=== PATIENT | male | born 1950 | race Caucasian/White ===

== ENCOUNTER 2023-01-09 13:40 | Emergency (ER) | payer MEDICARE, OTHER ==
[~2023-01-09] VITALS: Ht 180.3 cm; Wt 108.7 kg
[2023-01-09] MEDS ORDERED: methocarbamoL 750 MG TAB PO ONE (13:55)
[2023-01-09] MEDS ORDERED: KETOROLAC 60MG 2ML VIAL IM ONE (13:55)
[2023-01-09] MEDS ORDERED: predniSONE 20 MG TAB PO ONE (16:25)
[2023-01-09] MEDS ORDERED: METH-1165 PO (16:26)
[2023-01-09] MEDS ORDERED: PRED10TA2 PO (16:26)
[2023-01-09 16:52] VITALS: BP 159/81
== END 2023-01-09 16:54 | disposition home or self-care (01) ==
LOC: M ED 13:40
DX: M54.17 Radiculopathy, lumbosacral region (principal); K21.9 Gastro-esophageal reflux disease without esophagitis
CPT/HCPCS: 72148; 96372; 99284; J7512

== ENCOUNTER → 2023-01-15 | Outpatient (CLI) | payer MEDICARE, OTHER ==
[~2023-01-15] MED LIST: METH-1165 PO; PRED10TA2 PO
== END ==
LOC: M SOG 08:30
PROVIDERS: ATTEND Orthopaedic Surgery
DX: M47.817 Spondylosis without myelopathy or radiculopathy, lumbosacral region (principal)

== ENCOUNTER 2024-06-13 14:01 | Observation (INO) | payer MEDICAID, MEDICARE ==
[~2024-06-13] VITALS: Ht 180.3 cm; Wt 112.7 kg
[2024-06-13] MEDS: NS 1,000 ML IV SCH (17:49)
[2024-06-13] MEDS: dexAMETHasone 20MG/5ML VIAL IV ONE (17:50)
[2024-06-13] MEDS: CYCLOBENZAPRINE 10MG TABLET PO ONE (17:50)
[2024-06-13 18:11] LABS: BASO % 0.2 % (0.0-1.0); EOS # 0.2 10^3/uL (0.0-0.5); EOS % 1.4 % (0.0-3.0); HEMATOCRIT 44.1 % (42.0-52.0); HEMOGLOBIN 14.4 g/dl (13.5-17.5); LYMPH # 2.3 10^3/uL (1.5-5.0); LYMPH % 19.7 % (24.0-44.0); MEAN CORPUSCULAR HEMOGLOBIN 29.9 pg (27.0-33.0); MEAN CORPUSCULAR HGB CONC 32.7 g/dl (32.0-36.5); MEAN CORPUSCULAR VOLUME 91.7 fl (80.0-96.0); MONO # 0.7 10^3/uL (0.0-0.8); MONO % 6.1 % (2.0-8.0); NEUTROPHILS # 8.2 10^3/uL (1.5-8.5); PLATELET COUNT, AUTOMATED 226 10^3/uL (150-450); RED BLOOD COUNT 4.81 10^6/uL (4.30-6.10); WHITE BLOOD COUNT 11.5 10^3/uL (4.0-10.0)
[2024-06-13 18:31] LABS: C REACTIVE PROTEIN QUANTITATIV < 0.40 MG/DL (<1.0)
[2024-06-13 18:32] LABS: ALBUMIN 4.1 G/DL (3.2-5.2); ALKALINE PHOSPHATASE 95 U/L (46-116); ALT/SGPT 35 U/L (7.0-40); AST/SGOT 17 U/L (<34); BILIRUBIN,TOTAL 0.5 MG/DL (0.3-1.2); BLOOD UREA NITROGEN 13 MG/DL (9-23); CARBON DIOXIDE LEVEL 27 MMOL/L (20-31); CHLORIDE LEVEL 107 MMOL/L (98-107); CREATININE FOR GFR 0.91 MG/DL (0.70-1.30); GLOMERULAR FILTRATION RATE > 60.0 (>42); GLUCOSE, FASTING 90 MG/DL (74-106); POTASSIUM SERUM 4.4 MMOL/L (3.5-5.1); SODIUM LEVEL 139 MMOL/L (136-145); TOTAL PROTEIN 6.5 G/DL (5.7-8.2)
[2024-06-13] MEDS ORDERED: KETO10TAB PO (19:34)
[2024-06-13] MEDS ORDERED: CYCL-707 PO ×2 (19:34→21:18)
[2024-06-13] MEDS: PERCOCET 5MG/325MG TAB PO ONE (19:56)
[2024-06-13] MEDS: KETOROLAC 30 MG/ML 1ML VIAL IV ONE (19:56)
[2024-06-13] MEDS: MORPHINE 4 MG/ML 1ML VIAL IV ONE (20:25)
[2024-06-13] MEDS ORDERED: ACET-683 PO (21:18)
[2024-06-13] MEDS ORDERED: ONETAB32 PO (21:18)
[2024-06-13] MEDS ORDERED: OMEP-173 PO (21:18)
[2024-06-13] MEDS ORDERED: NAPR-885 PO (21:18)
[2024-06-13] MEDS ORDERED: [UNRECOGNIZED DRUG - CODE] PO (21:18)
[2024-06-13] MEDS ORDERED: HOME MED LIST COMPLETE! XX SCH (21:20)
[2024-06-13] MEDS ORDERED: methocarbamoL 500 MG TAB PO PRN (22:35)
[2024-06-13] MEDS ORDERED: MOM 30ML SUSPENSION UDC PO PRN (22:35)
[2024-06-13] MEDS ORDERED: ACETAMINOPHEN 500 MG TAB PO PRN (22:35)
[2024-06-14 00:45] VITALS: BP 157/99; TEMP 98.6; O2SAT 96
[2024-06-14] MEDS: diphenhydrAMINE 25MG CAP PO ONE (01:59)
[2024-06-14] MEDS ORDERED: PERCOCET 5MG/325MG TAB PO PRN (02:15)
[2024-06-14] MEDS ORDERED: ACETAMINOPHEN TAB 650MG DOSE (2X325MG) PO PRN (04:35)
[2024-06-14 07:30] LABS: HEMATOCRIT 43.5 % (42.0-52.0); HEMOGLOBIN 13.9 g/dl (13.5-17.5); MEAN CORPUSCULAR HEMOGLOBIN 29.2 pg (27.0-33.0); MEAN CORPUSCULAR VOLUME 91.4 fl (80.0-96.0); PLATELET COUNT, AUTOMATED 224 10^3/uL (150-450); RED BLOOD COUNT 4.76 10^6/uL (4.30-6.10); WHITE BLOOD COUNT 12.1 10^3/uL (4.0-10.0)
[2024-06-14 07:55] LABS: BLOOD UREA NITROGEN 14 MG/DL (9-23); CALCIUM LEVEL 8.8 MG/DL (8.3-10.6); CARBON DIOXIDE LEVEL 24 MMOL/L (20-31); CHLORIDE LEVEL 107 MMOL/L (98-107); CREATININE FOR GFR 0.83 MG/DL (0.70-1.30); GLOMERULAR FILTRATION RATE > 60.0 (>42); GLUCOSE, FASTING 148 MG/DL (74-106); POTASSIUM SERUM 4.7 MMOL/L (3.5-5.1); SODIUM LEVEL 138 MMOL/L (136-145)
[2024-06-14] MEDS: HEPARIN SOD (PORCINE) 5000UNITS/ML 1ML VIAL/SYRINGE SC SCH (08:06)
[2024-06-14] MEDS: ACETAMINOPHEN TAB 650MG DOSE (2X325MG) PO SCH (08:57)
[2024-06-14] MEDS: methocarbamoL 500 MG TAB PO PRN (08:57)
[2024-06-14] MEDS: MOM 30ML SUSPENSION UDC PO SCH (08:58)
[2024-06-14] MEDS: SENOKOT S TAB PO SCH (08:58)
[2024-06-14] MEDS: OMEPRAZOLE 20MG CAP PO SCH (08:58)
[2024-06-14] MEDS: KETOROLAC 30 MG/ML 1ML VIAL IV SCH (08:58)
[2024-06-14] MEDS: PERCOCET 5MG/325MG TAB PO PRN (11:23)
[2024-06-14 12:00] VITALS: BP 120/81; TEMP 98.6; O2SAT 94
[2024-06-14 20:03] VITALS: BP_SYST 124; BP_SYST 158; BP_DIAS 74; BP_DIAS 88; TEMP 99; O2SAT 95
[2024-06-14] MEDS ORDERED: OMEPRAZOLE 20MG CAP PO SCH ×2 (21:00)
[2024-06-14] MEDS ORDERED: CYCLOBENZAPRINE 10MG TABLET PO PRN (22:10)
[2024-06-15] MEDS: diphenhydrAMINE 25MG CAP PO PRN (00:40)
[2024-06-15 04:38] VITALS: BP 126/74; TEMP 98.2; O2SAT 96
[2024-06-15 07:25] LABS: BASO % 0.1 % (0.0-1.0); EOS % 0.3 % (0.0-3.0); HEMATOCRIT 41.4 % (42.0-52.0); HEMOGLOBIN 13.2 g/dl (13.5-17.5); LYMPH # 2.5 10^3/uL (1.5-5.0); LYMPH % 15.8 % (24.0-44.0); MEAN CORPUSCULAR HEMOGLOBIN 29.1 pg (27.0-33.0); MEAN CORPUSCULAR HGB CONC 31.9 g/dl (32.0-36.5); MEAN CORPUSCULAR VOLUME 91.4 fl (80.0-96.0); MONO % 6.1 % (2.0-8.0); NEUTROPHILS # 12.1 10^3/uL (1.5-8.5); NEUTROPHILS % 77.1 % (36.0-66.0); PLATELET COUNT, AUTOMATED 219 10^3/uL (150-450); RED BLOOD COUNT 4.53 10^6/uL (4.30-6.10); WHITE BLOOD COUNT 15.7 10^3/uL (4.0-10.0)
[2024-06-15 07:49] LABS: BLOOD UREA NITROGEN 17 MG/DL (9-23); CALCIUM LEVEL 8.9 MG/DL (8.3-10.6); CARBON DIOXIDE LEVEL 30 MMOL/L (20-31); CHLORIDE LEVEL 109 MMOL/L (98-107); CREATININE FOR GFR 1.02 MG/DL (0.70-1.30); GLOMERULAR FILTRATION RATE > 60.0 (>42); GLUCOSE, FASTING 96 MG/DL (74-106); POTASSIUM SERUM 4.4 MMOL/L (3.5-5.1); SODIUM LEVEL 143 MMOL/L (136-145)
[2024-06-15 12:01] VITALS: BP 127/81; TEMP 98.6; O2SAT 94
[2024-06-15] MEDS ORDERED: SENN-52 PO (12:45)
[2024-06-15] MEDS ORDERED: ACET-683 PO (12:45)
[2024-06-15] MEDS ORDERED: KETO10TAB PO (12:45)
[2024-06-15] MEDS ORDERED: PERCOCET PO (12:45)
[2024-06-15] MEDS ORDERED: METH-1164 PO (12:45)
[2024-06-15] MEDS ORDERED: MEDR4PAK PO (12:45)
== END 2024-06-15 14:10 | disposition home or self-care (01) ==
LOC: EDBD 14:01 → M ED 14:01 → M ED INP 14:02 → INTOOBSV 14:02 → M MS5PR 06-14 00:40
PROVIDERS: ADMIT Internal Medicine; ATTEND Internal Medicine Nephrology
DX: M51.36 Other intervertebral disc degeneration, lumbar region (principal); M25.78 Osteophyte, vertebrae; M51.26 Other intervertebral disc displacement, lumbar region; M48.16 Ankylosing hyperostosis [Forestier], lumbar region; G56.81 Other specified mononeuropathies of right upper limb; M47.812 Spondylosis without myelopathy or radiculopathy, cervical region; M54.30 Sciatica, unspecified side; G89.29 Other chronic pain; M19.90 Unspecified osteoarthritis, unspecified site; M70.51 Other bursitis of knee, right knee; K21.9 Gastro-esophageal reflux disease without esophagitis; R97.20 Elevated prostate specific antigen [PSA]; K43.9 Ventral hernia without obstruction or gangrene; E66.9 Obesity, unspecified; Z68.34 Body mass index [BMI] 34.0-34.9, adult; Z79.899 Other long term (current) drug therapy; Z80.51 Family history of malignant neoplasm of kidney
CPT/HCPCS: 36415; 72131; 80048; 80053; 83735; 85025; 85027; 86140; 96361; 96374; 96375; 96376; 97116; 97161; 97530; 99285; G0378; J1100; J1885

== ENCOUNTER → 2025-01-10 | Outpatient (CLI) | payer MEDICARE, MEDICAID ==
[~2025-01-10] MED LIST changes: +ACET-683 PO; +CYCL-707 PO; +KETO10TAB PO; +MEDR4PAK PO; +METH-1164 PO; +NAPR-885 PO; +OMEP-173 PO; +ONETAB32 PO; +PERCOCET PO; +PROHANCE 279.3MG/ML 15ML VIAL As Ordered ONE; +PROHANCE 279.3MG/ML 5ML VIAL As Ordered ONE; +SENN-52 PO; +[UNRECOGNIZED DRUG - CODE] PO
== END ==
LOC: M RAD 10:48
PROVIDERS: ATTEND Physician Assistant
DX: R97.20 Elevated prostate specific antigen [PSA] (principal); N40.0 Benign prostatic hyperplasia without lower urinary tract symptoms
CPT/HCPCS: 72197; A9576